=== PATIENT | female | born 1955 | race Caucasian/White ===

== ENCOUNTER 2017-05-31 19:31 | Inpatient (IN) | payer MEDICARE ==
[2017-05-31] MEDS ORDERED: Ondansetron INJ* 2 MG/ML VIAL IV ONE (22:24)
[2017-06-01] MEDS: NS 0.9% 1000 ML* 2,000 ML IV ONE ×2 (00:30→04:42)
[2017-06-01 01:12] LABS: Hematocrit 41 % (35-47); Hemoglobin 13.6 g/dl (12.0-16.0); Mean Corpuscular HGB Conc 33 g/dl (31-36); Mean Corpuscular Hemoglobin 29 pg (27-31); Mean Corpuscular Volume 87 fL (80-97); Mean Platelet Volume 9 um3 (7.4-10.4); Red Blood Count 4.74 10^6/ul (4.0-5.4); Red Cell Distribution Width 15 % (10.5-15); White Blood Count 14.7 10^3/ul (3.5-10.8)
[2017-06-01 01:27] LABS: Albumin 4.4 g/dL (3.2-5.2); BUN/Creatinine Ratio 24.4 (8-20); Calcium 9.8 mg/dL (8.6-10.3); EGFR African American 59.5 (>60); EGFR Non-African American 46.3 (>60); Globulin 3.4 g/dL (2-4); Total Bilirubin 0.8 mg/dL (0.2-1.0); Total Protein 7.8 g/dL (6.4-8.9)
[2017-06-01 01:33] LABS: Potassium 4.5 mmol/L (3.5-5.0)
[2017-06-01] MEDS ORDERED: Ondansetron TAB* 4 MG PO ONE (02:49)
--- NOTE | 2017-06-01 05:17 | ED ---
Stephanie Rivera Rebecca, scribed for John Poonuel on 05/31/17 at 2222 . Abdominal Pain/Female - HPI Summary HPI Summary: Pt is a 62 y/o F who presents to ED c/o N/V. Pt is scheduled to have a GI bypass with Dr. Mckenna so she began the diet 4 days ago. For 2 days she has been unable to tolerate PO intake. Reports that she is now vomiting bright yellow. Reports that she is unable to keep both food and medication down, including her Metformin. Sx aggravated by PO intake, alleviated by nothing. Denies abdominal pain. States she has not eaten for the last 3 days. Pt was started on Abx for UTI yesterday. PMHx DM. BG 151 earlier today. Similar episode in January 2016. - History of Current Complaint Chief Complaint: EDAbdPain Stated Complaint: UNABLE TO KEEP FOOD DOWN Time Seen by Provider: 05/31/17 22:02 Hx Obtained From: Patient Onset/Duration: Still Present Severity Currently: None Pain Intensity: 0 Pain Scale Used: 0-10 Numeric Aggravating Factor(s): Food Alleviating Factor(s): Nothing Associated Signs and Symptoms: Positive: Nausea, Vomiting Simlar Episode/Dx as:: Similar episode in January 2016 Allergies/Adverse Reactions: Allergies Allergy/AdvReac Type Severity Reaction Status Date / Time Lansoprazole [From Prevacid] Allergy Itching Verified 02/01/16 12:42 PMH/Surg Hx/FS Hx/Imm Hx Endocrine/Hematology History: Reports: Hx Diabetes - type 2 Denies: Hx Thyroid Disease Cardiovascular History: Reports: Hx Atrial Fibrillation, Hx Hypertension Denies: Hx Congestive Heart Failure Respiratory History: Reports: Hx Chronic Obstructive Pulmonary Disease (COPD) Denies: Hx Asthma GI History: Denies: Hx Ulcer History: Denies: Hx Renal Disease Musculoskeletal History: Reports: Hx Arthritis Sensory History: Reports: Hx Contacts or Glasses Opthamlomology History: Reports: Hx Contacts or Glasses - Cancer History Hx Chemotherapy: No Hx Radiation Therapy: No - Surgical History Surgery Procedure, Year, and Place: gall bladder, appy, tubal, [facility] Infectious Disease History: No Infectious Disease History: Denies: Hx Hepatitis, Hx Human Immunodeficiency Virus (HIV), Traveled Outside the [place] in Last 30 Days - Family History Known Family History: Positive: Cardiac Disease, Hypertension - Social History Alcohol Use: None Substance Use Type: Reports: None Smoking Status (MU): Former Smoker Type: Cigarettes Review of Systems Negative: Fever Positive: Vomiting, Nausea. Negative: Abdominal Pain All Other Systems Reviewed And Are Negative: Yes Physical Exam - Summary Physical Exam Summary: Appearance: Well appearing, no pain distress Skin: warm, dry, reflects adequate perfusion Head/face: normal Eyes: EOMI, LIZBET ENT: normal Neck: supple, nontender Respiratory: CTA, breath sounds present Cardiovascular: RRR, pulses symmetrical Abdomen: nontender, soft Bowel: present Musculoskeletal: normal, strength/ROM intact Neuro: normal, sensory motor intact, A&Ox3 Triage Information Reviewed: Yes Vital Signs On Initial Exam: Initial Vitals Temp Pulse Resp BP Pulse Ox 96 F 50 18 120/96 97 05/31/17 19:46 05/31/17 19:46 05/31/17 19:46 05/31/17 19:46 05/31/17 19:46 Vital Signs Reviewed: Yes Diagnostics - Vital Signs Vital Signs Temp Pulse Resp BP Pulse Ox 05/31/17 19:46 96 F 50 18 120/96 97 - Laboratory Result Diagrams: 06/01/17 00:55 06/01/17 00:55 Lab Statement: Any lab studies that have been ordered have been reviewed, and results considered in the medical decision making process. - Radiology KUB Xray Interpretation: No Acute Changes Radiology Interpretation Completed By: ED Physician CXR Xray Interpretation: No Acute Changes Radiology Interpretation Completed By: ED Physician - EKG 2221 Cardiac Rate: NL - 94 bpm EKG Rhythm: Atrial Fibrillation EKG Interpretation: No acute changes Re-Evaluation - Re-Evaluation First Eval Re-Evaluation Time: 02:45 Change: Improved Comment: Pt's sx have improved with the Zofran and she does not want to stay in the ED. She would prefer to f/u with her doctor as an outpatient. Second Eval Re-Evaluation Time: 04:14 Change: Worse Comment: Pt continues to vomit, failing her PO challenge. Abdominal Pain Fem Course/Dx - Course Course Of Treatment: Pt is a 62 y/o F who presents to ED c/o N/V. Pt is scheduled to have a GI bypass with Dr. Mckenna so she began the diet 4 days ago. For 2 days she has been unable to tolerate PO intake. Reports that she is now vomiting bright yellow. Reports that she is unable to keep both food and medication down, including her Metformin. Sx aggravated by PO intake. Denies abdominal pain. States she has not eaten for the last 3 days. Pt was started on Abx for UTI yesterday. PMHx DM. BG 151 earlier today. Similar episode in January 2016. LUB and CXR reveal no acute findings. EKG is A Fib with no acute changes. In the ED course, pt received Zofran which improved sx. Troponin of 0.00. Pt was unable to tolerate PO, failing her PO challenge. Discussed care of pt with Dr. Carpenter who accepts pt for admission. Pt will be admitted with Dx of dehydratoin and N/V. She understands and agrees. Allergies noted. - Diagnoses Provider Diagnoses: Dehydration, N&V (nausea and vomiting) - Provider Notifications Discussed Care Of Patient With: Armando Carpenter Time Discussed With Above Provider: 04:25 Instructed by Provider To: Other - Accepts pt for admission. Discharge - Discharge Plan Condition: Stable Disposition: ADMITTED TO [facility] Prescriptions: Ondansetron ODT TAB* [Zofran 4 MG Odt TAB*] 4 mg PO Q8H PRN #20 tab.odt MDD 3 PRN Reason: Vomiting Patient Education Materials: Dehydration (ED), Acute Nausea and Vomiting (ED) Referrals: Juancho Aguilar MD [Primary Care Provider] - 3 Days Gavin Mckenna MD [Medical Doctor] - The documentation as recorded by the Stephanie quinn Rebecca accurately reflects the service I personally performed and the decisions made by , Juan José Poon.
--- NOTE | 2017-06-01 07:41 | RAD ---
INDICATION: Intermittent shortness of breath and diaphoresis COMPARISON: None TECHNIQUE: PA and lateral views of the chest were obtained. FINDINGS: The heart and mediastinum are normal in size and contour. The lungs are grossly clear. There is no evidence of large pleural effusion. Mild degenerative changes of the thoracic spine includes loss of intervertebral disc height and anterior marginal osteophyte formation. There is no radiographic evidence of free air beneath the diaphragm IMPRESSION: No radiographic evidence of acute cardiopulmonary disease.
--- NOTE | 2017-06-01 07:51 | RAD ---
INDICATION: Emesis COMPARISON: None TECHNIQUE: 3 views the abdomen were obtained. FINDINGS: Postsurgical changes include surgical clips secondary to cholecystectomy. There are no acute bony or soft tissue abnormalities. The bowel gas pattern is normal. There is a moderate amount of stool overlying the renal shadows. There are no obvious coarse calcifications overlying the expected location of the bilateral collecting systems or ureters. IMPRESSION:Normal KUB.
[2017-06-01] MEDS ORDERED: Acetaminophen TAB* 325 MG PO PRN (07:56)
[2017-06-01] MEDS ORDERED: Ondansetron INJ* 2 MG/ML VIAL IV PRN (07:56)
[2017-06-01] MEDS ORDERED: NS 0.9% 1000 ML* 1,000 ML IV SCH (08:00)
--- NOTE | 2017-06-01 09:39 | RAD ---
HISTORY: History of DVT, asymmetric leg pain COMPARISONS: None relevant TECHNIQUE: Multiple transverse and longitudinal ultrasound images were obtained of the right lower extremity from the level of the common femoral vein inferiorly through to the infrapopliteal veins using grayscale, color Doppler, and spectral Doppler imaging with and without compression and with augmentation. Comparison images were obtained of the contralateral common femoral vein. FINDINGS: The study is limited by patient body habitus. VEINS: The venous system of the right lower extremity is compressible throughout its course, with normal flow on color Doppler imaging and normal response to augmentation on spectral Doppler imaging. Only one posterior tibial vein is visualized. SOFT TISSUES: Unremarkable. OTHER FINDINGS: None. IMPRESSION: NO RIGHT LOWER EXTREMITY DEEP VEIN THROMBOSIS
[2017-06-01 10:12] LABS: Urine Bilirubin Negative (Negative); Urine Glucose Negative (Negative); Urine Nitrite Negative (Negative)
[2017-06-01] MEDS: Omeprazole CAP* 20 MG PO SCH (10:32)
[2017-06-01] MEDS: Cetirizine* 10 MG TAB PO SCH (10:32)
[2017-06-01] MEDS: glipiZIDE TAB.XL* 5 MG PO SCH (10:33)
[2017-06-01] MEDS: metFORMIN* 1,000 MG TAB PO SCH ×2 (10:33→21:55)
[2017-06-01] MEDS: Losartan TAB* 25 MG PO SCH (10:34)
[2017-06-01] MEDS: Atorvastatin* 10 MG TAB PO SCH (10:34)
[2017-06-01] MEDS: Insulin GLARGINE(*) 1 UNITS UNIT SUBCUT SCH (10:35)
[2017-06-01] MEDS: cefTRIAXone VIAL(*) 1,000 MG in NS 0.9% 50 ML* 50 ML IVPB SCH (10:37)
--- NOTE | 2017-06-01 11:07 | HP ---
ADMISSION HISTORY AND PHYSICAL: DATE OF ADMISSION: 06/01/17 PRIMARY CARE PROVIDER: Dr. Aguilar. HEALTHCARE PROXY: Her . CODE STATUS: Full. SOURCE OF INFORMATION: History obtained from interview with the patient, review of ED records, review of past medical records. RELIABILITY: Good. CHIEF COMPLAINT: Intractable nausea and vomiting. HISTORY OF PRESENT ILLNESS: This is a 62-year-old female with past medical history of morbid obesity, insulin-dependent type 2 diabetes mellitus, hypertension amongst other comorbidities, with a planned gastric bypass on 06/[address] Mckenna. Thursday, 5 days prior to admission, she started on a high protein diet as directed by her doctors prior to the surgery and the following day, on , 4 days prior to admission, she developed nausea, vomiting. She continued to vomit overnight. She continued to vomit from through the day to the date of admission. She has been unable to tolerate food or medications, including her insulin, although that's IV, and her Xarelto. Three days prior to admission, she called her doctor and was seen in the Dr. Aguilar's office. She related urinary frequency and had urinalysis performed and was started on ciprofloxacin. I discussed with her the labs in Dr. Aguilar's office. The urine collection was too small to perform a urine dip and the culture has not yet been received from Dr. Aguilar's office from Thursday, so there is culture data pending. The patient took 1 day of ciprofloxacin, does no longer feel like she has urinary frequency. She has continued to vomit 5 to 6 times per day. She had 1 episode of loose stools for 2 consecutive days and then no further diarrhea. She notes decreased urine output with her decreased appetite and p.o. intake. There has been no sick contacts. She has had no pain. No fevers, chills, night sweats, loss of consciousness, headache, shortness of breath, chest pain. PAST MEDICAL HISTORY: 1. Morbid obesity with planned gastric bypass Dr. Mckenna. 2. Insulin-independent type 2 diabetes mellitus. 3. Atrial fibrillation. 4. Hypertension. 5. Depression. 6. GERD. 7. History of cholecystectomy. 8. Appendectomy. 9. Tonsillectomy. HOME MEDICATIONS: Include: 1. Insulin glargine 40 units in the morning and 30 units in the evening. 2. Cymbalta 60 mg daily. 3. Clarinex 5 mg daily. 4. Acetaminophen 1000 mg 4 times a day as needed. 5. Omeprazole 40 mg daily. 6. Multivitamin 1 capsule daily. 7. Metoprolol XL 25 mg in the evening. 8. Losartan 100 mg daily. 9. Simvastatin 20 mg daily. 10. Rivaroxaban 20 mg in the evening. 11. Metformin 1000 mg twice daily. 12. Glipizide 5 mg daily. 13. Vitamin D 35,000 units daily. ALLERGIES: LANSOPRAZOLE. FAMILY HISTORY: Father has CAD. Mother, sister, and brother with type 2 diabetes. Mother with hypertension. SOCIAL HISTORY: Smoked 1-1/2 packs per day for 3 years, quit 7 or 8 years prior , no alcohol. REVIEW OF SYSTEMS: As per HPI, otherwise all other systems negative. PHYSICAL EXAMINATION GENERAL: Obese woman, lying flat in bed, interactive, pleasant, in no apparent distress. VITAL SIGNS: In the emergency room, 124/75, heart rate 89, respiratory rate of 16, 96% on room air. T-max in the emergency room 96 degrees Fahrenheit. HEENT: Oropharynx is clear. She has dry mucous membranes. Sclerae are anicteric. NECK: She has no elevated JVD. She has no supraclavicular or cervical lymphadenopathy. LUNGS: Clear to auscultation. HEART: She has a regular rate and rhythm. No murmur, rub, or gallops. ABDOMEN: Soft, nondistended. Positive bowel sounds. No tenderness. No rebound or guarding. EXTREMITIES: Warm and well perfused. Her right lower extremity appears larger than her left. NEUROLOGIC: She is alert and oriented x3. Her cranial nerves are intact. LABORATORY/DIAGNOSTIC DATA: Pertinent labs reveal BUN of 29, creatinine 1.19, glucose of 150, troponin-I 0.00. Lipase 11, INR is 1.19. White blood cell count of 14.7, 81.5% neutrophils, hemoglobin 13.6, platelets 428. Urinalysis is pending. Chest x-ray: No active cardiopulmonary disease. Abdominal film still pending, formal interpretation, appears with no free air. Nonobstructive bowel gas pattern. Formal interpretation is pending. EKG: Atrial fibrillation, normal limit axis, normal limit intervals, biphasic T waves in V3 through V6, which is changed from prior. ASSESSMENT AND PLAN: This is a 62-year-old female with past medical history of insulin-dependent type 2 diabetes, atrial fibrillation, morbid obesity with planned gastric bypass, started on high protein diet, developed subsequent nausea and vomiting with also intervening diagnosis of urinary tract infection based on symptoms, now presenting unable to tolerate either medications or food. 1. Persistent nausea and vomiting. Complicated by acute kidney injury. Admit to the hospital. Continue normal saline. IV antiemetics. Challenge with liquid diet. If the patient is unable to swallow her Xarelto, we will transition her to heparin as she has not taken it for 3 days. I suspect this is in the setting of transitioning her diet. However, need to rule out other infectious etiology such as urinary tract infection as well as cardiac etiologies given her T wave inversions. 2. History of urinary tract infection without urine culture. She has received 1 day of ciprofloxacin. We will repeat urinalysis and treat with ceftriaxone. She does have an elevated white blood cell count. However, this is in the setting of several days of nausea and vomiting. 3. Morbid obesity. Nutritional consult for guidance on appropriate diet in the setting of inability to tolerate high protein diet. 4. Atrial fibrillation. Restart Xarelto. If unable to start Xarelto, we will consider heparinizing and she has been off of medication for sometime, for 3 days. 5. T-wave inversions. Repeat additional 2 troponins. Repeat EKG in the morning or with the changing troponin. 6. Type 2 diabetes. In the setting of poor p.o. intake, decrease 40 units of Lantus to 20 units of Lantus today. Hold all additional Lantus and glipizide, continue metformin. Continue on fingersticks. 7. DVT prophylaxis. Xarelto. Otherwise, transition to heparin. [id number]/[facility] #: [id number] [facility]ITALLuiz
[2017-06-01] MEDS: DULoxetine DR CAP* 60 MG CAP.DR PO SCH (12:06)
--- NOTE | 2017-06-01 17:06 | PN ---
Progress Note - Progress Note Date of Service: 06/01/17 SOAP: Subjective: Pt seen and chart reviewed. Pt known to me. Dysphagia. Objective: af vss labs noted Assessment: Morbid obesity, dysphagia. known stomach lesion/polyp Plan: Hold Xaralto, EGD with biopsy. Will follow
[2017-06-01] MEDS ORDERED: Dextrose 50% Syringe 50 ML* 25 GM/50 ML SYRINGE IV PUSH PRN (17:17)
[2017-06-01] MEDS: Metoprolol Succinate XL TAB* 25 MG PO SCH (17:40)
[2017-06-01] MEDS ORDERED: Rivaroxaban TAB(*) 20 MG TAB PO SCH (18:00)
[2017-06-01] MEDS ORDERED: PTO:Diclofenac 1% GEL (NF) 100 GM TUBE TOPICAL PRN (21:00)
[2017-06-01] MEDS: Insulin LISPRO* 1 UNITS UNIT SUBCUT SCH (21:54)
[2017-06-01] MEDS: Heparin VIAL(*) 5000 UNITS/ML VIAL (FIVE THOUSAND) SUBCUT SCH (21:55)
[2017-06-02] MEDS: Heparin VIAL(*) 5000 UNITS/ML VIAL (FIVE THOUSAND) SUBCUT SCH ×3 (05:58→22:20)
[2017-06-02] MEDS: Omeprazole CAP* 20 MG PO SCH (07:24)
[2017-06-02] MEDS: Insulin LISPRO* 1 UNITS UNIT SUBCUT SCH ×4 (07:28→21:01)
[2017-06-02] MEDS: Losartan TAB* 25 MG PO SCH (09:56)
[2017-06-02] MEDS: Atorvastatin* 10 MG TAB PO SCH (09:57)
[2017-06-02] MEDS: metFORMIN* 1,000 MG TAB PO SCH ×2 (09:57→21:01)
[2017-06-02] MEDS: DULoxetine DR CAP* 60 MG CAP.DR PO SCH (09:57)
[2017-06-02] MEDS: glipiZIDE TAB.XL* 5 MG PO SCH (09:57)
[2017-06-02] MEDS: Cetirizine* 10 MG TAB PO SCH (09:58)
[2017-06-02] MEDS: cefTRIAXone VIAL(*) 1,000 MG in NS 0.9% 50 ML* 50 ML IVPB SCH (09:58)
[2017-06-02] MEDS: Insulin GLARGINE(*) 1 UNITS UNIT SUBCUT SCH (09:58)
--- NOTE | 2017-06-02 17:15 | PN ---
Subjective Date of Service: 06/02/17 Interval History: Still nauseous but able to tolerate clear liquids and medications today. No other complaints. Objective Active Medications: Acetaminophen (Tylenol Tab*) 650 mg PO Q4H PRN PRN Reason: FEVER/PAIN Atorvastatin Calcium (Lipitor*) 20 mg PO DAILY [facility] Last Admin: 06/02/17 09:57 Dose: 20 mg Cetirizine HCl (Zyrtec*) 10 mg PO DAILY [facility] PRN Reason: Protocol Last Admin: 06/02/17 09:58 Dose: 10 mg Dextrose (D50w Syringe 50 Ml*) 12.5 gm IV PUSH .FOR FS < 60 - SS PRN PRN Reason: FS < 60 Diclofenac Sodium (Voltaren 1% Gel (Nf)) 1 applic TOPICAL BID PRN PRN Reason: TO KNEES Duloxetine HCl (Cymbalta Cap*) 60 mg PO DAILY [facility] Last Admin: 06/02/17 09:57 Dose: 60 mg Glipizide (Glucotrol Xl*) 5 mg PO DAILY [facility] Last Admin: 06/02/17 09:57 Dose: 5 mg Heparin Sodium (Porcine) (Heparin Vial(*)) 5,000 units SUBCUT Q8HR [facility] Last Admin: 06/02/17 14:43 Dose: 5,000 units Ceftriaxone Sodium 1,000 mg/ (Sodium Chloride) 50 mls @ 200 mls/hr IVPB Q24H [facility] Last Admin: 06/02/17 09:58 Dose: 200 mls/hr Insulin Glargine (Lantus(*)) 20 units SUBCUT Q24H [facility] Last Admin: 06/02/17 09:58 Dose: 20 unit Insulin Human Lispro (Humalog*) 0 units SUBCUT ACHS [facility] PRN Reason: Protocol Last Admin: 06/02/17 16:44 Dose: 2 unit Losartan Potassium (Cozaar Tab*) 100 mg PO DAILY [facility] Last Admin: 06/02/17 09:56 Dose: 100 mg Metformin HCl (Glucophage*) 1,000 mg PO BID [facility] Last Admin: 06/02/17 09:57 Dose: 1,000 mg Metoprolol Succinate (Toprol Xl Tab*) 25 mg PO QPM [facility] Last Admin: 06/01/17 17:40 Dose: 25 mg Omeprazole (Prilosec Cap*) 40 mg PO DAILY@0730 [facility] Last Admin: 06/02/17 07:24 Dose: 40 mg Ondansetron HCl (Zofran Inj*) 4 mg IV Q4H PRN PRN Reason: NAUSEA/VOMITING Vital Signs 06/01/17 06/01/17 06/02/17 19:23 20:00 00:00 Temperature 97.9 F 98.0 F Pulse Rate 103 100 Respiratory 16 16 20 Rate Blood Pressure 136/67 126/60 (mmHg) O2 Sat by Pulse 96 97 Oximetry 06/02/17 06/02/17 06/02/17 03:48 07:32 08:00 Temperature 97.6 F 97.3 F Pulse Rate 75 73 Respiratory 20 18 18 Rate Blood Pressure 109/76 144/82 (mmHg) O2 Sat by Pulse 98 97 Oximetry 06/02/17 06/02/17 06/02/17 11:31 15:01 15:24 Temperature 97.8 F 99.1 F Pulse Rate 80 105 Respiratory 16 Rate Blood Pressure 120/78 115/71 (mmHg) O2 Sat by Pulse 97 98 Oximetry Oxygen Devices in Use Now: None Appearance: obese, NAD Eyes: No Scleral Icterus, PERRLA Ears/Nose/Mouth/Throat: Mucous Membranes Moist Neck: NL Appearance and Movements; NL JVP Respiratory: Symmetrical Chest Expansion and Respiratory Effort, Clear to Auscultation Cardiovascular: RRR Abdominal: NL Sounds; No Tenderness; No Distention Lymphatic: No Cervical Adenopathy Neurological: Alert and Oriented x 3 Result Diagrams: 06/01/17 00:55 06/01/17 00:55 Assess/Plan/Problems-Billing Assessment: 62 F admitted with intractable N/V - Patient Problems (1) Intractable nausea and vomiting Comment: In setting of high protein diet in preparation for gastric surgery planned 06/[address] Mckenna to arrange for cscope (2) Afib Comment: Rate controlled on Metoprolol. Xarelto on hold for cscope. restart as soon as possible (3) Insulin dependent diabetes mellitus Comment: oral medications and lantus with insulin SS (4) UTI (urinary tract infection) Comment: CTX Status and Disposition: Transfer to Dr. Mckenna's service
[2017-06-02] MEDS: Metoprolol Succinate XL TAB* 25 MG PO SCH (17:52)
[2017-06-03] MEDS: Heparin VIAL(*) 5000 UNITS/ML VIAL (FIVE THOUSAND) SUBCUT SCH ×2 (05:38→13:51)
[2017-06-03] MEDS: Insulin LISPRO* 1 UNITS UNIT SUBCUT SCH ×5 (08:00→21:54)
[2017-06-03] MEDS: Cetirizine* 10 MG TAB PO SCH (08:24)
[2017-06-03] MEDS: Atorvastatin* 10 MG TAB PO SCH (08:24)
[2017-06-03] MEDS: metFORMIN* 1,000 MG TAB PO SCH ×2 (08:24→21:50)
[2017-06-03] MEDS: DULoxetine DR CAP* 60 MG CAP.DR PO SCH (08:24)
[2017-06-03] MEDS: glipiZIDE TAB.XL* 5 MG PO SCH (08:25)
[2017-06-03] MEDS: Omeprazole CAP* 20 MG PO SCH (08:25)
[2017-06-03] MEDS: Losartan TAB* 25 MG PO SCH (08:32)
[2017-06-03] MEDS: cefTRIAXone VIAL(*) 1,000 MG in NS 0.9% 50 ML* 50 ML IVPB SCH (10:14)
[2017-06-03] MEDS: Insulin GLARGINE(*) 1 UNITS UNIT SUBCUT SCH (10:30)
[2017-06-03] MEDS ORDERED: Insulin GLARGINE(*) 1 UNITS UNIT SUBCUT ONE (11:00)
[2017-06-03] MEDS ORDERED: Buffered Lidocaine 0.9% SYRIN* 5 ML/SYR SYRINGE ONE (13:37)
[2017-06-03] MEDS ORDERED: Dextrose 50% Syringe 50 ML* 25 GM/50 ML SYRINGE IV PUSH ONE (13:57)
[2017-06-03] MEDS ORDERED: Dextrose 50% Syringe 50 ML* 25 GM/50 ML SYRINGE ONE (13:59)
[2017-06-03] MEDS ORDERED: fentaNYL* 50 MCG/ML 2 ML VIAL (100 MCG VIAL) IV PRN (14:09)
[2017-06-03] MEDS ORDERED: PROCHLORPERAZINE INJ 5 MG/ML 2 ML VIAL IV PRN (14:09)
[2017-06-03] MEDS: Metoprolol Succinate XL TAB* 25 MG PO SCH (17:25)
--- NOTE | 2017-06-03 17:42 | PN ---
Progress Note - Progress Note Date of Service: 06/03/17 SOAP: Subjective: Pt seen, chart reviewed. No vomiting. s/p EGD, removal of polyp Objective: af vss a and o x3 Assessment: s/p egd, improving after N/V following starting protein diet Plan: clears, advance d/c tomorrow OR next week
[2017-06-03] MEDS ORDERED: Rivaroxaban TAB(*) 20 MG TAB PO SCH (18:00)
--- NOTE | 2017-06-03 22:15 | CONS ---
GASTROENTEROLOGY CONSULTATION: DATE OF CONSULT: 06/03/17 PRIMARY CARE PROVIDER: Dr. Aguilar. HOSPITAL PROVIDER: Erik Engel MD REASON FOR CONSULTATION: Intractable nausea, vomiting. HISTORY OF PRESENT ILLNESS: Ms. Lara is a pleasant 62-year-old female with a past medical history of morbid obesity, diabetes and hypertension, who presented to the hospital with complaints of intractable nausea, vomiting after starting a high protein diet as directed by her bariatric surgeon in preparation for her gastric bypass on 06/10/[address] Mckenna. She had difficulty tolerating any food or her regular daily medications, which prompted her to present to the emergency room for further evaluation. She also stated that she had diarrhea for a few days, but has since resolved. She denies any fevers or chills. Denies sick contacts. She has had a decreased appetite over the last few days due to her nausea and vomiting. Gastroenterology was consulted for further evaluation of these symptoms. Of note, during her last endoscopy performed back in January of 2017 a large gastric polyp was not removed due to anticoagulation use. Her symptoms have slightly improved while in the hospital. She is on Omeprazole 40 mg daily. Denies dysphagia. No rectal bleeding. No recent weight changes. No fevers/chills. No recent travels. PAST MEDICAL HISTORY: 1. Atrial fibrillation, on Xarelto. 2. GERD. 3. Morbid obesity. 4. Diabetes mellitus type 2, insulin-dependent. 5. Hypertension. 6. Depression. PAST SURGICAL HISTORY: 1. Cholecystectomy. 2. Appendectomy. 3. Tonsillectomy. HOME MEDICATIONS: 1. Insulin. 2. Cymbalta. 3. Clarinex. 4. Acetaminophen. 5. Omeprazole. 6. Multivitamin. 7. Metoprolol. 8. Losartan. 9. Simvastatin. 10. Rivaroxaban. 11. Metformin. 12. Glipizide. 13. Vitamin D. ALLERGIES: LANSOPRAZOLE - unknown reaction at this time. FAMILY HISTORY: Denies a history of gastrointestinal malignancies. Father with coronary artery disease. Mother, sister, and brother with diabetes. Mother also had hypertension. SOCIAL HISTORY: She smoked about one and a half packs per day for 3 years, quit about 7 or 8 years ago. Denies alcohol use. REVIEW OF SYSTEMS: A 14-point scale has been reviewed, all pertinent positives have been noted above in the HPI. PHYSICAL EXAM: General: Awake alert, oriented x3, in no acute distress. HEENT : Dry mucous membranes. Anicteric sclerae. Heart: Regular rate and rhythm. Pulmonary: Clear to auscultation bilaterally. Abdomen: Soft, nontender, and nondistended. Positive bowel sounds in 4 quadrants, obese, nontender. No rebound, guarding, or rigidity. Extremities: No edema and cyanosis. Neurological Exam: She is grossly intact. Vital signs have been noted in the medical chart and are stable. DIAGNOSTIC STUDIES/LAB DATA: WBC is 14.7, hemoglobin 13.6, hematocrit 41, platelet count 428. INR 1.19, PTT 25.3. Sodium 138, potassium 4.5, chloride 103, CO2 25, anion gap 10, BUN 29, creatinine 1.19, calcium 9.8. Total bilirubin 0.80, AST 31, ALT 21, alkaline phosphatase 71. Troponin 0.00, total protein 7.8, albumin 4.4, lipase 11. Abdominal x-ray on 05/31/17 revealed a normal imaging. Lower extremity venous Doppler studies were unremarkable on 06/01/17. ASSESSMENT AND PLAN: Ms. Lara is a pleasant 62-year-old female with a past medical history of morbid obesity, atrial fibrillation (Xarelto has been held for 2 days), hypertension, diabetes mellitus type 2, who presented to the emergency room with complaints of intractable nausea, vomiting. She is currently scheduled to have gastric bypass surgery with Dr. Mckenna on 06/10/17. Gastroenterology was consulted for further evaluation of the patient's symptoms. 1. Intractable nausea, vomiting. ~NPO for an EGD today. We will perform this under monitored anesthesia care due to her multiple comorbidities. ~Continue Omperazole 40 mg daily. ~She is currently off Xarelto; therefore, biopsies and possible polypectomies can be performed safely. ~Continue Compazine and Zofran as needed for nausea and vomiting. ~Further recommendations will be provided after the results of endoscopy. 2. Gastroesophageal reflux disease. ~Currently on omeprazole 40 mg daily. 3. Morbid obesity. ~Scheduled for gastric bypass with Dr. Mckenna on 06/10/17. 4. Atrial fibrillation, on Xarelto. ~Xarelto has been held for 3 days in light of EGD today. Thank you, Dr. Mckenna, for allowing us to participate in the care of your patient. Further recommendations will be provided as the patient's clinical course progresses. If you should have any further questions or concerns, please do not hesitate to contact us. [id number]/[facility] #: [id number] DONALD
--- NOTE | 2017-06-04 00:40 | PRO ---
CC: Dr. Aguilar; Dr. Mckenna * GASTROENTEROLOGY OPERATIVE REPORT: DATE OF PROCEDURE: 06/03/17 SURGEON: Elvia Vu DO. ANESTHESIA: MAC. OPERATIVE PROCEDURE: Esophagogastroduodenoscopy to the second portion of the duodenum. HISTORY OF PRESENT ILLNESS: Catherine is a pleasant 62-year-old female, who is morbidly obese and scheduled to undergo gastric bypass surgery next week. She has a history of atrial fibrillation, currently off Xarelto for the last 2 days , who presented to the hospital with complaints of intractable nausea and vomiting after initiating a high protein diet in preparation for her surgery. Gastroenterology was consulted for further evaluation of these symptoms and need for resection of a large gastric polyp that was noted on endoscopy in January of 2007, but was not removed due to active anticoagulation therapy. PREOPERATIVE DIAGNOSES: 1. Intractable nausea and vomiting. 2. Previous unresected gastric polyp due to anticoagulation therapy. POSTOPERATIVE DIAGNOSES: 1. Irregular gastroesophageal junction at 40 cm from the incisors with biopsies to rule out Esquivel's esophagus. 2. Normal-appearing duodenum to the second portion with biopsies to rule out celiac disease. 3. Pangastritis with biopsies from the antrum and body to rule out Helicobacter pylori. 4. A 1-cm ulcerated pedunculated fundic polyp with hot snare polypectomy and one hemoclip placement for hemostasis. 5. A 6-mm nodule in the cardia of the stomach with biopsies. 6. Normal mid and proximal esophagus with biopsies to rule out eosinophilic esophagitis. RECOMMENDATIONS: 1. We will follow up with biopsy results. 2. Continue proton pump inhibitor therapy daily. 3. Encouraged antireflux lifestyle modifications. 4. May be advanced to a clear liquid diet this evening. DESCRIPTION OF PROCEDURE: Esophagogastroduodenoscopy was explained in detail to the patient. The risks, benefits, complications, alternatives, and possibilities of missed lesions were explained and understood. Complications included but were not limited to reaction to anesthesia, aspiration, increased risk of bleeding, and perforation. All questions were answered. The patient demonstrated understanding of the conversation and informed consent was obtained. Next, the patient was brought to the OR, placed in the left lateral recumbent position where blood pressure, cardiac and oxygen monitors were applied. The patient was found to be a fit candidate for moderate anesthesia care. After adequate IV sedation was obtained by the anesthesiologist, a bite block was placed. Next, a standard adult Olympus endoscope was inserted per os under direct visualization to the first and second portion of the duodenum. The first and second portion of the duodenum were grossly normal appearing. Cold forceps biopsies were obtained to rule out celiac disease. Further withdrawal of the endoscope into the gastric lumen revealed erythematous changes consistent with gastritis throughout the entire stomach. Cold forceps biopsies were obtained from the antrum and body to rule out H. pylori. Upon further withdrawal into the fundus of the stomach a 1-cm ulcerative pedunculated polyp was noted, this was removed via hot snare polypectomy. An additional hemoclip was placed due to an urgent need for anticoagulation therapy. Hemostasis was seen. Further withdrawal into the cardia of the stomach revealed a 6 mm nodule , this was biopsied. Further withdrawal into the distal esophagus revealed an irregular appearing GE junction noted to be at 40 cm. This area was biopsied via jumbo forceps to rule out Esquivel's esophagus. The rest of the tubular esophagus was normal appearing; however, cold forceps biopsies were obtained to rule out eosinophilic esophagitis given previous history of dysphagia. Air was then removed from the patient. Endoscope was removed from the patient. The patient tolerated the procedure well. There were no immediate complications. After a period of observation, the patient was transferred back to the medical floor for further evaluation and care. Thank you, Dr. Aguilar and Dr. Mckenna, for allowing us to participate in the care of your patient. If you should have any further questions or concerns, please do not hesitate to contact us. [id number]/[facility] #: [id number] DONALD
[2017-06-04] MEDS: Insulin LISPRO* 1 UNITS UNIT SUBCUT SCH (07:29)
[2017-06-04] MEDS: Losartan TAB* 25 MG PO SCH (07:30)
[2017-06-04] MEDS: DULoxetine DR CAP* 60 MG CAP.DR PO SCH (07:30)
[2017-06-04] MEDS: Cetirizine* 10 MG TAB PO SCH (07:30)
[2017-06-04] MEDS: Omeprazole CAP* 20 MG PO SCH (07:30)
[2017-06-04] MEDS: Atorvastatin* 10 MG TAB PO SCH (07:30)
[2017-06-04] MEDS: glipiZIDE TAB.XL* 5 MG PO SCH (07:31)
[2017-06-04] MEDS: metFORMIN* 1,000 MG TAB PO SCH (07:31)
[2017-06-04 08:07] VITALS: BP 151/99
[2017-06-04] MEDS: Insulin GLARGINE(*) 1 UNITS UNIT SUBCUT SCH (10:09)
[2017-06-04] MEDS: cefTRIAXone VIAL(*) 1,000 MG in NS 0.9% 50 ML* 50 ML IVPB SCH (10:31)
== END 2017-06-04 10:46 | disposition home or self-care (01) | DRG 394 ==
LOC: ED 19:31 → MEDTELE 06-01 04:26 → OBSVTOIN 06-03 17:16
PROVIDERS: ADMIT Hospitalist; ATTEND Surgery
PROC: 0DB98ZX Excision of Duodenum, Via Natural or Artificial Opening Endoscopic, Diagnostic (ICD-10-PCS; 2017-06-03)
PROC: 0DB78ZX Excision of Stomach, Pylorus, Via Natural or Artificial Opening Endoscopic, Diagnostic (ICD-10-PCS; 2017-06-03)
PROC: 0DB68ZX Excision of Stomach, Via Natural or Artificial Opening Endoscopic, Diagnostic (ICD-10-PCS; 2017-06-03)
PROC: 0DB18ZX Excision of Upper Esophagus, Via Natural or Artificial Opening Endoscopic, Diagnostic (ICD-10-PCS; 2017-06-03)
PROC: 0DB28ZX Excision of Middle Esophagus, Via Natural or Artificial Opening Endoscopic, Diagnostic (ICD-10-PCS; 2017-06-03)
PROC: 0DB48ZX Excision of Esophagogastric Junction, Via Natural or Artificial Opening Endoscopic, Diagnostic (ICD-10-PCS; 2017-06-03)
PROC: 0DB68ZZ Excision of Stomach, Via Natural or Artificial Opening Endoscopic (ICD-10-PCS; principal; 2017-06-03 13:30)
DX: K31.7 Polyp of stomach and duodenum (principal); N17.9 Acute kidney failure, unspecified; R13.10 Dysphagia, unspecified; E66.01 Morbid (severe) obesity due to excess calories; I48.91 Unspecified atrial fibrillation; Z68.42 Body mass index [BMI] 45.0-49.9, adult; E86.0 Dehydration; N39.0 Urinary tract infection, site not specified; E11.9 Type 2 diabetes mellitus without complications; I10 Essential (primary) hypertension; F32.9 Major depressive disorder, single episode, unspecified; K21.9 Gastro-esophageal reflux disease without esophagitis; Z90.49 Acquired absence of other specified parts of digestive tract; Z88.8 Allergy status to other drugs, medicaments and biological substances; Z82.49 Family history of ischemic heart disease and other diseases of the circulatory system; Z83.3 Family history of diabetes mellitus; Z87.891 Personal history of nicotine dependence; J44.9 Chronic obstructive pulmonary disease, unspecified; M19.90 Unspecified osteoarthritis, unspecified site; Z98.51 Tubal ligation status; R11.2 Nausea with vomiting, unspecified; K29.70 Gastritis, unspecified, without bleeding; K31.89 Other diseases of stomach and duodenum
CPT/HCPCS: 36415; 71020; 74000; 80053; 81003; 83690; 84484; 85025; 85610; 85730; 88305; 93005; A9270-GY; J0696; J1644; J2405

== ENCOUNTER 2017-06-10 06:28 | Inpatient (IN) | payer MEDICARE ==
[~2017-06-10 06:28] MED LIST: Buffered Lidocaine 0.9% SYRIN* 5 ML/SYR SYRINGE INTRADERM ONE; Famotidine IV* 10 MG/ML 2 ML (20 mg) IV ONE; Metoclopramide TAB* 10 MG PO ONE
[2017-06-10] MEDS ORDERED: Famotidine IV* 10 MG/ML 2 ML (20 mg) ONE (06:48)
[2017-06-10] MEDS ORDERED: Metoclopramide TAB* 10 MG ONE (06:49)
[2017-06-10] MEDS ORDERED: Buffered Lidocaine 0.9% SYRIN* 5 ML/SYR SYRINGE ONE (06:49)
[2017-06-10] MEDS ORDERED: Methylene Blue 0.5 %* 50 MG/10 ML AMP IV ONE (07:10)
[2017-06-10] MEDS ORDERED: Bupivacaine 0.25% SDV* 30 ML ONE ×2 (07:10→08:53)
[2017-06-10] MEDS ORDERED: Clindamycin 900 MG IVPREMIX(* 900 MG/50 ML SDV IV ONE (07:17)
[2017-06-10] MEDS ORDERED: ceFAZolin 2 GM PREMIX (*) 2 GM/50 ML BAG IVPB ONE (07:17)
[2017-06-10] MEDS ORDERED: Propofol* 10 MG/ML 20 ML BTL IV PUSH ONE ×2 (07:25→10:56)
[2017-06-10] MEDS ORDERED: Rocuronium* 10 MG/ML VIAL ONE (07:25)
[2017-06-10] MEDS ORDERED: KETAMINE HCL* 50 MG/ML 10 ML VIAL ONE (07:25)
[2017-06-10] MEDS ORDERED: Lidocaine 2% PF * 5 ML VIAL ONE (07:25)
[2017-06-10] MEDS ORDERED: Dexamethasone IV* 4 MG/ML 1 ML (4 MG) ONE (07:25)
[2017-06-10] MEDS ORDERED: Ketorolac INJ* 30 MG/ML 1 ML VIAL ONE (07:25)
[2017-06-10] MEDS ORDERED: Ondansetron INJ* 2 MG/ML VIAL ONE (07:25)
[2017-06-10] MEDS ORDERED: fentaNYL* 50 MCG/ML 5 ML VIAL (250 MCG VIAL) ONE (07:26)
[2017-06-10] MEDS ORDERED: Midazolam* 1 MG/ML 5 ML VIAL (5 MG) ONE (07:26)
[2017-06-10] MEDS ORDERED: ceFAZolin 1 GM* X ONE DOSE IVPB ×2 (08:00)
[2017-06-10] MEDS ORDERED: Labetalol IV* 5 MG/ML 20 ML VIAL ONE (08:08)
[2017-06-10] MEDS ORDERED: Atropine 1MG/ML INJ* 1 ML VIAL ONE (08:31)
[2017-06-10] MEDS ORDERED: fentaNYL* 50 MCG/ML 2 ML VIAL (100 MCG VIAL) ONE ×4 (08:44→12:23)
[2017-06-10] MEDS ORDERED: Phenylephrine IV* 40 MCG/ML 10 ML SYRINGE ONE (09:40)
[2017-06-10] MEDS ORDERED: DiMENhydriNATE IV* 50 MG/ML VIAL IV PUSH PRN (09:55)
[2017-06-10] MEDS ORDERED: Ondansetron INJ* 2 MG/ML VIAL IV PRN ×2 (09:55→11:22)
[2017-06-10] MEDS ORDERED: HYDROmorphone INJ* 1 MG/ML CARPUJECT SYRINGE IV PRN ×2 (09:55→11:22)
[2017-06-10] MEDS ORDERED: Acetaminophen ADULT LIQ* 650 MG/20.3 ML UDC PO PRN (11:22)
[2017-06-10] MEDS ORDERED: diPHENhydraMINE IV* 50 MG/ML 1 ml VIAL (BENADRYL) SLOW PUSH PRN (11:22)
--- NOTE | 2017-06-10 11:22 | SURGPN ---
Brief Operative Note - Surgery Procedures: Procedures Pre-OP Diagnoses: Clinically severe obesity Post-op Diagnosis: same Procedure: Laparoscopic Mirela an Y gastric bypass Surgeon: Bala Larat: Diana Marcanothefranck: ALEM Bettencourt EBL: minimal IVF: crystalloid Specimen: none Drains: none
[2017-06-10] MEDS: fentaNYL* 50 MCG/ML 2 ML VIAL (100 MCG VIAL) IV PRN ×2 (12:24→12:43)
[2017-06-10] MEDS ORDERED: HYDROmorphone INJ* 1 MG/ML CARPUJECT SYRINGE ONE (12:50)
[2017-06-10] MEDS: Heparin VIAL(*) 5000 UNITS/ML VIAL (FIVE THOUSAND) SUBCUT SCH ×2 (14:43→22:08)
[2017-06-10] MEDS: Ketorolac INJ* 15 MG/ML 1 ML VIAL IV PRN ×2 (15:44→22:20)
[2017-06-10] MEDS ORDERED: Dextrose 50% Syringe 50 ML* 25 GM/50 ML SYRINGE IV PUSH PRN (17:34)
[2017-06-10] MEDS: HYDROmorphone INJ* 2 MG/ML CARPUJECT SYRINGE IV PRN ×2 (17:37→22:17)
[2017-06-10] MEDS: Insulin LISPRO* 1 UNITS UNIT SUBCUT SCH (18:03)
[2017-06-10] MEDS ORDERED: Metoprolol Tartrate IV* 1 MG/ML 5 ML VIAL IV SCH (19:00)
[2017-06-11] MEDS: Insulin LISPRO* 1 UNITS UNIT SUBCUT SCH ×5 (00:10→23:53)
[2017-06-11] MEDS: Metoprolol Tartrate IV* 1 MG/ML 5 ML VIAL IV SCH ×5 (01:38→23:58)
[2017-06-11] MEDS: HYDROmorphone INJ* 2 MG/ML CARPUJECT SYRINGE IV PRN ×2 (05:30→11:11)
[2017-06-11] MEDS: Heparin VIAL(*) 5000 UNITS/ML VIAL (FIVE THOUSAND) SUBCUT SCH ×3 (05:33→22:42)
--- NOTE | 2017-06-11 09:06 | RAD ---
INDICATION: 1 day postop Mirela-en-Y gastric bypass for morbid obesity. COMPARISON: February 01, 2016 CT. TECHNIQUE: 0.3 minutes fluoroscopy. Spot images of the esophagogastric junction through proximal jejunum obtained during ingestion of Gastrografin contrast. AP and bilateral shallow oblique views obtained. FINDINGS: Contrast passes from the distal esophagus through the gastric pouch and gastrojejunal anastomosis without delay. No evidence for enteric leak. IMPRESSION: No evidence for enteric leak post Mirela-en-Y gastric bypass. CPT II Codes: 6045F
[2017-06-11] MEDS: D5W 1/2 NS KCl 20 Meq 1000 ML* 1,000 ML IV SCH ×2 (11:11→19:12)
--- NOTE | 2017-06-11 11:53 | SURGPN ---
Subjective - Introduction -: Reports doing very well, ambulatory. Denies any abdominal pain, nausea, vomiting , fever or chills. No flatus yet. - Medications -: Active Medications Generic Name Dose Route Start Last Admin Trade Name Freq PRN Reason Stop Dose Admin Acetaminophen 650 mg 06/10/17 11:22 Tylenol Adult Liq* PO Q6H PRN Temp > 101 F Or Mild Pain Hydrocodone Bitart/Acetaminophen 10 ml 06/10/17 11:22 Nortab 7.5/325 Liq* PO Q6H PRN PAIN Dextrose 12.5 gm 06/10/17 17:34 D50w Syringe 50 Ml* IV PUSH .FOR FS < 60 - SS PRN FS < 60 Diphenhydramine HCl 25 mg 06/10/17 11:22 Benadryl Iv* SLOW PUSH Q6H PRN ITCHING Heparin Sodium (Porcine) 5,000 units 06/10/17 14:00 06/11/17 05:33 Heparin Vial(*) SUBCUT 5,000 units Q8HR ABDIAS Administration Hydromorphone HCl 0.5 mg 06/10/17 17:33 06/11/17 11:11 Dilaudid Inj* IV 0.5 mg Q3H PRN Administration PAIN - SEVERE Potassium Chloride/Dextrose 1,000 mls @ 125 mls/hr 06/11/17 11:23 06/11/17 11 :11 D5w 1/2 Ns Kcl 20 Meq 1000 Ml* IV 125 mls/hr PER RATE ABDIAS Administration Famotidine 20 mg/ Sodium 102 mls @ 408 mls/hr 06/10/17 12:00 06/11/17 00:00 Chloride IVPB 408 mls/hr Q12H ABDIAS Administration Insulin Human Lispro 0 units 06/10/17 18:00 06/11/17 05:42 Humalog* SUBCUT 3 units Q6HR ABDIAS Administration Protocol Ketorolac Tromethamine 15 mg 06/10/17 11:22 06/10/17 22:20 Toradol Inj* IV 06/12/17 02:00 15 mg Q6H PRN Administration PAIN Metoprolol Tartrate 5 mg 06/11/17 01:30 06/11/17 07:58 Lopressor Iv* IV 5 mg 0130,0730,1330,1930 ABDIAS Administration Ondansetron HCl 4 mg 06/10/17 11:22 06/11/17 11:31 Zofran Inj* IV 4 mg Q6H PRN Administration NAUSEA/VOMITING Objective - Objective -: Awake and alert, sitting on her bed, comfortable and in NAD. - Intake and Output -: Intake & Output 06/09/17 06/10/17 06/11/17 06/12/17 06:59 06:59 06:59 06:59 Intake Total 5091 999 Output Total 1050 Balance 4041 999 Weight 291 lb Intake: IV Fluids 5091 999 ANCEF 3GM 100 CLINDAMYCIN 900 MG 50 LR 4941 999 Oral 0 0 Output: Cardenas 1050 Surgical Physical Exam - Comments -: VSS, afebrile Lungs CTA bilat. Heart RRR, no murmurs. Abdomen soft, NT, ND. Incisions clean, dry and intact. No guarding or rebound. Upper GI reviewed, negative for leak Assessment and Plan - Assessment -: A 62 y/o female, POD#1, s/p laparoscopic RYGB, doing well. - Plan Additional Comments: D/C cardenas cath Ambulate as tolerated Start bariatric stage I clear liquids Likely home in AM
[2017-06-11] MEDS ORDERED: Metoclopramide IV* 5 MG/ML 2 ML VIAL IV ONE (12:33)
[2017-06-11] MEDS ORDERED: Metoprolol Tartrate IV* 1 MG/ML 5 ML VIAL ONE (12:39)
[2017-06-11] MEDS ORDERED: Metoclopramide IV* 5 MG/ML 2 ML VIAL ONE (12:39)
[2017-06-11] MEDS ORDERED: Famotidine IV* 10 MG/ML 2 ML (20 mg) ONE (12:39)
[2017-06-11] MEDS ORDERED: Famotidine IV* 10 MG/ML 2 ML (20 mg) IV SCH (13:00)
--- NOTE | 2017-06-11 14:38 | OP ---
CC: [facility]; Dr. Juancho Aguilar; Dr. Gavin Robb OPERATIVE REPORT: DATE OF OPERATION: 06/10/17 DATE OF : 59 SURGEON: Gavin Mckenna MD HOTEL CASINO FLOORPERSON: FELIX Haile ANESTHESIOLOGIST: Elvis Bettencourt MD ANESTHESIA: General. PRE-OP DIAGNOSES: 1. Clinically severe obesity. 2. Obstructive sleep apnea. 3. Hypertension. 4. Type 2 diabetes. 5. Hypercholesterolemia. POST-OP DIAGNOSES: 1. Clinically severe obesity. 2. Obstructive sleep apnea. 3. Hypertension. 4. Type 2 diabetes. 5. Hypercholesterolemia. OPERATIVE PROCEDURE: Laparoscopic Mirela-en-Y gastric bypass. ESTIMATED BLOOD LOSS: Minimal. FLUIDS: Crystalloid fluid given. SPECIMEN: None. COUNTS: Lap pad count and instrument count correct at the end of the procedure. DRAINS: None. DESCRIPTION OF PROCEDURE: The patient was identified in the preoperative area, marked, consent sign ed. Brought to the OR and placed on the operating room table in the supine position. Preoperative antibiotics were given. Sequential compression devices were placed in bilateral lower extremities. General anesthesia was induced. The patient's abdomen was prepped and draped in a standard surgica l fashion. Time-out was performed. Folds of the umbilicus were elevated anteriorly and a Veress needle was inserted into the abdominal cavity, which was then allowed to insufflate to a pressure of 15 mmHg. The patient tolerated the in sufflation well midway between the xiphoid and the umbilicus. Just left of midline, a 12-mm trocar was inserted, laparoscope was inserted through this and there was no evidence of injury from the tro car insertion or from the Veress needle. Review of the abdomen showed that the Veress needle did en ter into some omentum that was attached to the anterior abdominal wall and indeed there was signific ant amount of anterior abdominal wall adhesions. Additional trocars were placed in the following po sition, a 12-mm and a 5-mm in the left upper quadrant. Attention was then turned towards the midline. The omental attachments to the anterior abdominal wa ll were taken down through a LigaSure device. This was also extended superiorly to the falciform li gament that the attachments were involving and was unable to show that the omentum could be retracte d anteriorly. Next, additional 12-mm and 5-mm ports in the right upper quadrant were placed. Attention was then turned towards the transverse colon, this was identified and retracted anteriorly , and the ligament of Treitz identified, approximately 40 cm was counted off from this and the bowel was transected with a 45-mm marr JIMMIE stapling device. Enterotomy was made on the proximal portion o f the common biliopancreatic limb and the mesentery was undercut with a LigaSure device. Next, taking what will become the Mirela limb, we counted off approximately 80 cm of small bowel, and enterotomy was made at this site. A 60-mm marr JIMMIE stapling device was utilized to create a jejunoje junostomy and the common defect was reapproximated with 2-0 silk sutures in the figure-of-8 fashion. The mesenteric defect was similarly closed with 2-0 Polysorb suture in a figure-of-8 fashion. Next, table was positioned into a steep reverse Trendelenburg and a Alison retractor was inserted through the subxiphoid incision and the liver was retracted anteriorly to the right. This was some what fatty replaced liver, but without discrete lesion. We were able to identify the gastroesophage al fat pad, which was grasped and retracted to its right lower quadrant. Blunt and sharp dissection was carried out to expose the left crux. Next, the retrogastric tunnel was made approximating the third crossing vessel on the lesser curvatu re. A 45-mm marr JIMMIE stapling device was fired at this and an additional 60-mm marr JIMMIE stapling dimitri ce was fired through the stomach to create the pouch. There was a small additional portion through the fat pad. This fat pad was gently dissected and the LigaSure was utilized to free this off and o ne last firing with a 60-mm purple loaded stapler with Nancie-Strips. The pouch appeared the appropri ate size. We did complete our stapling with the Blaine tube in the stomach pouch. Attention was turned towards the small bowel, this Mirela limb was brought in apposition to the stomac h pouch. The proximal portion of this Mirela limb showed some violaceous changes that were concerning for possible ischemia. There was what appeared to be some thrombosis along the vasculature on the bowel wall. For this reason, we candy-caned this up towards the stomach. Stay sutures using 2-0 si lk sutures were placed ensuring that we were not involving the other portion of the bowel that we pl anned on transecting. Next, a gastrotomy was made over the Blaine tube and an enterotomy was made with cautery and the two were made with a 30-mm marr JIMMIE stapling device utilizing just over 2 cm of the stapling device. The common otomy was reapproximated with interrupted 3-0 silk sutures in a figure- of-8 fashion. Next, a 60-mm marr JIMMIE stapling device was fired across the proximal portion of the Mirela limb taking care not to get too close to the gastrojejunostomy but removing the portion that showed some of this thrombosis in the veins in the wall of the bowel. We did not undercut any additional mesentery. T his was placed in an endoscopic retrieval bag and brought out through the left upper quadrant port s ite. We did not send it for specimen. Review of the staple line showed it was intact, bleeding, hem ostasis was excellent and the remaining bowel was all pink and viable. Next, a methylene blue dye test was performed placing the Blaine tube through the anastomosis. We pl aced a gauze behind and there was a negative blue dye test with clamping of the Mirela limb. Blaine tu be was removed after suctioning out the blue dye. We did imbricate additional portion of the small bowel up against the stomach to dunk portion of the suture line. Review of the abdomen showed no bl eeding. The jejunojejunostomy was intact. We then reviewed the distal limb and extended this count ing this off towards the ileum. When clear ileal bowel was identified, we stopped the procedure kno wing that we performed the Mirela-en-Y in the appropriate manner. The Alison retractor was removed . The abdomen was allowed to collapse. Trocar was removed under direct vision and all skin incision s were reapproximated with skin [place] followed by Steri-Strips and sterile dressing. The patient tolerated the procedure well, woken up in the OR, and transferred to the PACU in stable condition. [id number]/[facility] #: [id number]
[2017-06-11] MEDS: HYDROcodone/ACET. 7.5/325 LIQ* 15 ML UDC PO PRN (15:21)
[2017-06-11] MEDS ORDERED: Scopolamine 1.5 mg* PATCH TRANSDERM SCH (16:00)
--- NOTE | 2017-06-11 16:03 | PN ---
Progress Note - Progress Note Date of Service: 06/11/17 SOAP: Subjective: Pt seen and examined earlier today. No complaints at that time. some chest pain and nausea later on Objective: af vss uo good lungs clear abdo: soft/ ND, tender in epigastrum, no rebound no calf tenderness Acetaminophen (Tylenol Adult Liq*) 650 mg PO Q6H PRN PRN Reason: Temp > 101 F Or Mild Pain Hydrocodone Bitart/Acetaminophen (Nortab 7.5/325 Liq*) 10 ml PO Q6H PRN PRN Reason: PAIN Last Admin: 06/11/17 15:21 Dose: 10 ml Dextrose (D50w Syringe 50 Ml*) 12.5 gm IV PUSH .FOR FS < 60 - SS PRN PRN Reason: FS < 60 Diphenhydramine HCl (Benadryl Iv*) 25 mg SLOW PUSH Q6H PRN PRN Reason: ITCHING Heparin Sodium (Porcine) (Heparin Vial(*)) 5,000 units SUBCUT Q8HR [facility] Last Admin: 06/11/17 15:21 Dose: 5,000 units Hydromorphone HCl (Dilaudid Inj*) 0.5 mg IV Q3H PRN PRN Reason: PAIN - SEVERE Last Admin: 06/11/17 11:11 Dose: 0.5 mg Potassium Chloride/Dextrose (D5w 1/2 Ns Kcl 20 Meq 1000 Ml*) 1,000 mls @ 125 mls/hr IV PER RATE [facility] Last Admin: 06/11/17 11:11 Dose: 125 mls/hr Insulin Human Lispro (Humalog*) 0 units SUBCUT Q6HR [facility] PRN Reason: Protocol Last Admin: 06/11/17 12:48 Dose: 3 units Ketorolac Tromethamine (Toradol Inj*) 15 mg IV Q6H PRN PRN Reason: PAIN Stop: 06/12/17 02:00 Last Admin: 06/10/17 22:20 Dose: 15 mg Metoprolol Tartrate (Lopressor Iv*) 10 mg IV Q6H [facility] Last Admin: 06/11/17 12:48 Dose: 10 mg Ondansetron HCl (Zofran Inj*) 4 mg IV Q6H PRN PRN Reason: NAUSEA/VOMITING Last Admin: 06/11/17 11:31 Dose: 4 mg Pantoprazole Sodium (Protonix Iv*) 40 mg IV Q24H ABDIAS Pharmacy Profile Note (Scopolomine Patch Remove*) 1 note PATCH OFF Q72H ABDIAS Scopolamine (Transderm-Scop 1.5 Mg Patch*) 1 patch TRANSDERM Q72H ABDIAS UGi: no leak Assessment: POD 1 rygb, HD stable Plan: d/c cardenas advance diet
[2017-06-11] MEDS: Pantoprazole IV* 40 MG IV SCH (16:15)
[2017-06-11] MEDS: Ketorolac INJ* 15 MG/ML 1 ML VIAL IV PRN (19:37)
[2017-06-12] MEDS: Ketorolac INJ* 15 MG/ML 1 ML VIAL IV PRN (01:55)
[2017-06-12] MEDS: D5W 1/2 NS KCl 20 Meq 1000 ML* 1,000 ML IV SCH ×2 (03:28→11:32)
[2017-06-12] MEDS: Metoprolol Tartrate IV* 1 MG/ML 5 ML VIAL IV SCH ×2 (05:38→11:27)
[2017-06-12] MEDS: Heparin VIAL(*) 5000 UNITS/ML VIAL (FIVE THOUSAND) SUBCUT SCH ×2 (05:50→13:50)
[2017-06-12] MEDS: Insulin LISPRO* 1 UNITS UNIT SUBCUT SCH ×2 (05:50→12:32)
[2017-06-12] MEDS: HYDROcodone/ACET. 7.5/325 LIQ* 15 ML UDC PO PRN (09:13)
--- NOTE | 2017-06-12 09:14 | PN ---
Progress Note - Progress Note Date of Service: 06/12/17 SOAP: Subjective:POD#2 s/p lap rny gastric bypass;no nausea or chest pain;passing flatus [] Objective:afeb,HR 45-60,irreg irreg(known afib);lungs:clear bilat;abd:+bs, incisions intact with [place],no erythema or drainage;ext:nontender Troponins 06/11/17 negative;uo 250ml overnight [] Assessment:POD#2 no chest pain or nausea,ambulating and using IS [] Plan:start keyla clears,continue IV fluids for now,Metoprolol has been held for several doses for low HR,reassess later []
[2017-06-12 11:26] VITALS: BP 121/86
[2017-06-12] MEDS: Pantoprazole IV* 40 MG IV SCH (15:16)
--- NOTE | 2017-06-13 04:17 | DS ---
Amended report to enter cosigning physician on report. DISCHARGE SUMMARY: DATE OF ADMISSION: 06/10/17 DATE OF DISCHARGE: 06/12/17 PATIENT OF: Dr. Mckenna. ADMISSION DIAGNOSIS: Morbid obesity. DISCHARGE DIAGNOSIS: Morbid obesity. ADMITTING PHYSICIAN: Gavin Mckenna MD* (dictated by FELIX Haile). CONSULTATIONS: None. PROCEDURE: Laparoscopic Mirela-en-Y gastric bypass on 06/10/17. HISTORY OF PRESENT ILLNESS: Ms. Lara is a pleasant 62-year-old female who has been seen and followed by the bariatric office for anticipation for bariatric surgery. The patient had tried multiple attempts to lose weight in the past including several dietary plans and exercise regimen but unfortunately she failed to maintain her weight loss. Given her morbid obesity, she had other comorbidities including hypertension and diabetes mellitus for which she sought other surgical alternative to lose weight. She was evaluated found to be a good candidate to undergo a gastric bypass surgery by Dr. Mckenna for which she was scheduled on a later date. HOSPITAL COURSE: The patient was admitted on the same day and went to the operating room, had laparoscopic Mirela-en-Y gastric bypass on 06/10/17. After surgery, she went to the recovery room in a stable condition and then to the surgical floor for observation. She did relatively well after surgery and was ambulatory out of bed. Prior to her admission at this time, it is to be noted that the patient was admitted a week ago with complaints of nausea and vomiting when she started the protein liquid diet that was given to her preoperatively. Unfortunately, she experienced similar nausea and vomiting episodes after she started a bariatric liquid diet on the first day postoperatively. She complained of some chest pain for which EKG and troponin series was obtained and revealed negative for cardiac complications. The patient felt better when she went n.p.o. again on the second day. Her food trial was resumed on a second day postoperatively and she tolerated clear liquid very well. She was ambulatory, out of bed and had no further complaints of chest pain, abdominal pain, nausea or vomiting. Plan for her to go home later today and will follow up with her primary care physician to address medication changes as well as with Dr. Mckenna next week for a bariatric followup. DISCHARGE MEDICATIONS: Include Lortab Elixir 1 tablespoon q.6 hours as needed for pain. All her other medications including vitamin D, Clarinex, Cymbalta, insulin Lantus, losartan, metoprolol, omeprazole, Xarelto, Zocor and metformin will be on hold until addressed by her primary care physician in the next day or two. FELIX HAILE [id number]/[facility] #: [id number] DONALD
[2017-06-14] MEDS ORDERED: Scopolomine PATCH Remove* 1 NOTE MISC PATCH OFF SCH (16:00)
== END 2017-06-12 16:20 | disposition home or self-care (01) | DRG 620 ==
LOC: AA 06:28 → SSU 13:43
PROVIDERS: ADMIT Surgery; ATTEND Surgery
PROC: 0D164ZA Bypass Stomach to Jejunum, Percutaneous Endoscopic Approach (ICD-10-PCS; principal; 2017-06-10 07:45)
DX: E66.01 Morbid (severe) obesity due to excess calories (principal); I50.32 Chronic diastolic (congestive) heart failure; I11.0 Hypertensive heart disease with heart failure; R07.9 Chest pain, unspecified; E78.5 Hyperlipidemia, unspecified; F32.9 Major depressive disorder, single episode, unspecified; F41.9 Anxiety disorder, unspecified; G47.33 Obstructive sleep apnea (adult) (pediatric); K21.9 Gastro-esophageal reflux disease without esophagitis; I48.91 Unspecified atrial fibrillation; R11.2 Nausea with vomiting, unspecified; Z68.42 Body mass index [BMI] 45.0-49.9, adult; Z79.4 Long term (current) use of insulin; Z79.01 Long term (current) use of anticoagulants; Z90.49 Acquired absence of other specified parts of digestive tract; Z83.3 Family history of diabetes mellitus; Z82.49 Family history of ischemic heart disease and other diseases of the circulatory system; Z88.8 Allergy status to other drugs, medicaments and biological substances; Z98.51 Tubal ligation status; Z87.891 Personal history of nicotine dependence; Z86.718 Personal history of other venous thrombosis and embolism
CPT/HCPCS: 36415; 43644; 74246; 84484; 93005; 94760; A9270-GY; C1776; J0461; J0690; J1100; J1170; J1644; J1885; J2250; J2405; J2704; J2765; J3010

== ENCOUNTER 2018-04-13 21:41 | Emergency (ER) | payer MEDICARE ==
[2018-04-13 22:45] LABS: Urine Appearance Clear; Urine Blood 2+ (Negative); Urine Color Yellow; Urine Ketones Negative (Negative); Urine Protein 1+(30 mg/dL) (Negative); Urine Red Blood Cell 3+(>10/hpf) (Absent); Urine Specific Gravity 1.017 (1.010-1.030); Urine Urobilinogen Negative (Negative); Urine White Blood Cell 2+(11-20/hpf) (Absent)
--- NOTE | 2018-04-14 00:53 | ED ---
Abdominal Pain/Female - HPI Summary HPI Summary: This patient is a 63 year old F presenting to [facility] accompanied by with a chief complaint of L flank pain that began yesterday. The patient rates the pain 8/10 in severity. Symptoms aggravated by nothing. Symptoms alleviated by nothing. Patient reports pressure when urinating, and nausea. Patient denies hematuria, fever, and chills. Pt reports a history of UTI. - History of Current Complaint Chief Complaint: EDFlankPain Stated Complaint: LOWER BACK PAIN Time Seen by Provider: 04/14/18 00:47 Hx Obtained From: Patient ?: No Onset/Duration: Sudden Onset, Lasting Days, Still Present Timing: Constant Severity Initially: Moderate Severity Currently: Moderate Pain Intensity: 6 Pain Scale Used: 0-10 Numeric Location: Flank Radiates: No Aggravating Factor(s): Nothing Alleviating Factor(s): Nothing Associated Signs and Symptoms: Positive: Other: - Positive pressure when urinating Allergies/Adverse Reactions: Allergies Allergy/AdvReac Type Severity Reaction Status Date / Time Adhesive Tape Allergy ALLERGY TO Verified 04/13/18 21:47 SPECIFIC TAPE- NAME UNKNOWN lansoprazole [From Prevacid] Allergy Itching Verified 04/13/18 21:47 PMH/Surg Hx/FS Hx/Imm Hx Previously Healthy: No Endocrine/Hematology History: Reports: Hx Diabetes - type 2 Denies: Hx Thyroid Disease Cardiovascular History: Reports: Hx Atrial Fibrillation, Hx Hypertension, Other Cardiovascular Problems/Disorders - HX AFIB- SEES DR. JOHN FOR Denies: Hx Congestive Heart Failure Respiratory History: Reports: Hx Chronic Obstructive Pulmonary Disease (COPD), Hx Sleep Apnea Denies: Hx Asthma GI History: Denies: Hx Ulcer History: Denies: Hx Renal Disease Musculoskeletal History: Reports: Hx Arthritis Sensory History: Reports: Hx Contacts or Glasses Denies: Hx Hearing Aid Opthamlomology History: Reports: Hx Contacts or Glasses Neurological History: Reports: Hx Headaches - ONCE IN A WHILE, Hx Migraine - hx of - not recently Psychiatric History: Reports: Hx Depression - Cancer History Hx Chemotherapy: No Hx Radiation Therapy: No - Surgical History Surgery Procedure, Year, and Place: gall bladder, appy, tubal, [facility] Hx Anesthesia Reactions: No Infectious Disease History: No Infectious Disease History: Denies: Hx Hepatitis, Hx Human Immunodeficiency Virus (HIV), Hx of Known/ Suspected MRSA, Hx Shingles, Hx Tuberculosis, Traveled Outside the [place] in Last 30 Days - Family History Known Family History: Positive: Cardiac Disease, Hypertension - Social History Occupation: Disabled Lives: With Family Alcohol Use: None Hx Substance Use: No Substance Use Type: Reports: None Hx Tobacco Use: Yes Smoking Status (MU): Former Smoker Type: Cigarettes Amount Used/How Often: 1.5 PPD X 4 YEARS Have You Smoked in the Last Year: No Review of Systems Negative: Fever, Chills Positive: Nausea, Other - Positive L flank pain Genitourinary: Other - Positive pressure when urinating Negative: hematuria All Other Systems Reviewed And Are Negative: Yes Physical Exam - Summary Physical Exam Summary: Appearance: Well-appearing, Well-nourished, lying in bed comfortably Skin: Warm, dry, no obvious rash Eyes: sclera anicteric, no conjunctival pallor ENT: mucous membranes moist, pharynx appears normal Neck: Supple, nontender Respiratory: Clear to auscultation, no signs of respiratory distress Cardiovascular: Normal S1, S2. No murmurs. Normal distal pulses in tibial and radial bilaterally. Abdomen: Soft, normal active bowel sounds present, L-sided CVA tenderness Musculoskeletal: Normal, Strength/ROM Intact Neurological: A&Ox3, awake and alert, mentation is normal, speech is fluent and appropriate Psychiatric: affect is normal, does not appear anxious or depressed Triage Information Reviewed: Yes Vital Signs On Initial Exam: Initial Vitals Temp Pulse Resp BP Pulse Ox 97.2 F 78 18 166/102 96 04/13/18 21:44 04/13/18 21:44 04/13/18 21:44 04/13/18 21:44 04/13/18 21:44 Vital Signs Reviewed: Yes Diagnostics - Vital Signs Vital Signs Temp Pulse Resp BP Pulse Ox 04/13/18 23:43 97.3 F 83 18 173/91 97 04/13/18 21:44 97.2 F 78 18 166/102 96 - Laboratory Lab Results: Lab Results 04/13/18 Range/Units 22:26 Urine Color Yellow Urine Appearance Clear Urine pH 5.0 (5-9) Ur Specific Alpha 1.017 (1.010-1.030) Urine Protein 1+(30 mg/dl) A (Negative) Urine Ketones Negative (Negative) Urine Blood 2+ A (Negative) Urine Nitrate Negative (Negative) Urine Bilirubin Negative (Negative) Urine Urobilinogen Negative (Negative) Ur Leukocyte Esterase Trace A (Negative) Urine WBC (Auto) 2+(11-20/hpf) A (Absent) Urine RBC (Auto) 3+(>10/hpf) A (Absent) Ur Squamous Epith Cells Present A (Absent) Urine Bacteria Absent (Absent) Urine Glucose 3+(>=500 mg/dl) A (Negative) Result Diagrams: 04/14/18 01:06 04/14/18 01:08 Lab Statement: Any lab studies that have been ordered have been reviewed, and results considered in the medical decision making process. Abdominal Pain Fem Course/Dx - Diagnoses Provider Diagnoses: Pyelonephritis Discharge - Sign-Out/Discharge Documenting (check all that apply): Patient Departure - Discharge Plan Condition: Good Disposition: HOME Prescriptions: Sulfamethox/Trimethoprim DS* [Bactrim DS 800/160 TAB*] 1 tab PO BID #20 tab Patient Education Materials: Kidney Infection (ED) Referrals: Juancho Aguilar MD [Primary Care Provider] - - Billing Disposition and Condition Condition: GOOD Disposition: Home - Attestation Statements Document Initiated by Scribe: Yes Documenting Scribe: Francy Nevarez Provider For Whom Scribe is Documenting (Include Credential): Maximus Palacio MD Scribe Attestation: IFrancy, scribed for Maximus Palacio MD on 04/14/18 at 0431. Scribe Documentation Reviewed: Yes Provider Attestation: The documentation as recorded by the Francy quinn accurately reflects the service I personally performed and the decisions made by me, Maximus Palacio MD
[2018-04-14] MEDS ORDERED: cefTRIAXone VIAL(*) 1,000 MG VIAL IM ONE (00:55)
[2018-04-14] MEDS ORDERED: Sulfamethox/Trimethoprim DS 800/160* TAB PO ONE (00:55)
[2018-04-14] MEDS ORDERED: cefTRIAXone(*) 1 GM in NS 0.9% 50 ML* 50 ML IVPB ONE (01:22)
[2018-04-14 01:33] LABS: ABS Basophils 0.1 10^3/ul (0-0.2); ABS Eosinophils 0.2 10^3/ul (0-0.6); ABS Lymphocytes 2.2 10^3/ul (1.0-4.8); ABS Monocytes 0.9 10^3/ul (0-0.8); ABS Neutrophils 7.3 10^3/ul (1.5-7.7); ABS Nucleated RBC 0 10^3/ul; Eosinophil % 1.9 % (0-6); Hematocrit 43 % (35-47); Hemoglobin 13.9 g/dl (12.0-16.0); Mean Corpuscular HGB Conc 32 g/dl (31-36); Mean Corpuscular Hemoglobin 30 pg (27-31); Mean Corpuscular Volume 92 fL (80-97); Mean Platelet Volume 9.5 um3 (7.4-10.4); Nucleated Red Blood Cells % 0.1; Platelet Count 185 10^3/ul (150-450); Red Blood Count 4.69 10^6/ul (4.00-5.40); Red Cell Distribution Width 15 % (10.5-15); White Blood Count 10.7 10^3/ul (3.5-10.8)
[2018-04-14 01:58] LABS: EGFR Non-African American 62.8 (>60)
[2018-04-14 02:41] VITALS: BP 175/75
--- NOTE | 2018-04-14 22:29 | PN ---
Progress Note - Progress Note Date of Service: 04/14/18 Note: Lab called with a positive blood culture result. Patient was called but did not answer the phone, and there was no voicemail. Patient was called a second time 10:30 PM. Patient picked up the phone and was been advised of the positive blood culture and that she needs to return to the ED for further evaluation and possible IV antibiotics. Patient stated she would come to the ED tonight.
== END 2018-04-14 02:40 | disposition home or self-care (01) ==
LOC: ED 21:41
DX: N10 Acute pyelonephritis (principal); Z88.8 Allergy status to other drugs, medicaments and biological substances; Z91.048 Other nonmedicinal substance allergy status; Z87.891 Personal history of nicotine dependence
CPT/HCPCS: 36415; 80053; 81003; 81015; 83605; 85025; 87040; 87077; 87086; 87205; 96365; 99283; A9270-GY; J0696

== ENCOUNTER 2018-05-05 14:30 | Emergency (ER) | payer MEDICARE ==
[2018-05-05 15:40] LABS: ABS Basophils 0.1 10^3/ul (0-0.2); ABS Eosinophils 0.1 10^3/ul (0-0.6); ABS Lymphocytes 1.9 10^3/ul (1.0-4.8); ABS Monocytes 0.6 10^3/ul (0-0.8); ABS Neutrophils 5.3 10^3/ul (1.5-7.7); ABS Nucleated RBC 0 10^3/ul; Eosinophil % 1.7 % (0-6); Hematocrit 40 % (35-47); Hemoglobin 13.3 g/dl (12.0-16.0); Lymphocyte % 23.6 % (25-47); Mean Corpuscular HGB Conc 34 g/dl (31-36); Mean Corpuscular Hemoglobin 30 pg (27-31); Mean Corpuscular Volume 90 fL (80-97); Mean Platelet Volume 8.6 um3 (7.4-10.4); Nucleated Red Blood Cells % 0.1; Platelet Count 306 10^3/ul (150-450); Red Blood Count 4.42 10^6/ul (4.00-5.40); Red Cell Distribution Width 14 % (10.5-15); White Blood Count 8.1 10^3/ul (3.5-10.8)
[2018-05-05 16:14] LABS: EGFR Non-African American 67.1 (>60)
[2018-05-05] MEDS ORDERED: Ondansetron INJ* 2 MG/ML VIAL IV ONE (18:33)
[2018-05-05] MEDS ORDERED: NS 0.9% 1000 ML* 1,000 ML IV ONE (18:33)
--- NOTE | 2018-05-05 18:39 | ED ---
Abdominal Pain/Female - HPI Summary HPI Summary: This patient is a 63 year old F presenting to [facility] accompanied by her with a chief complaint of N/V since 05/01/18. SHx gastric bypass almost a year ago , and she states she just recently started eating. Today, pt went to family medicine, who gave pt Zofran with no alleviation of sx. She endorses occipital CARDENAS radiating to neck, hypertension, and bilateral pedal edema (rx diuretics but has not been compliant). She denies diarrhea, abd pain, fever, CP, and lightheadedness. - History of Current Complaint Chief Complaint: EDNauseaVomitDiarrh Stated Complaint: VOMITTING Time Seen by Provider: 05/05/18 18:25 Hx Obtained From: Patient Onset/Duration: Sudden Onset, Lasting Days, Still Present Timing: Constant Severity Initially: Moderate Pain Intensity: 8 Pain Scale Used: 0-10 Numeric Location: Other - CARDENAS radiating to neck Aggravating Factor(s): Nothing Alleviating Factor(s): Nothing, Other: - Zofran did not alleviate sx. Associated Signs and Symptoms: Positive: Nausea, Vomiting, Other: - bilateral pedal edema. Negative: Fever, Chest Pain, Dizzy - denies lightheadedness, Diarrhea Allergies/Adverse Reactions: Allergies Allergy/AdvReac Type Severity Reaction Status Date / Time Adhesive Tape Allergy ALLERGY TO Verified 05/05/18 14:43 SPECIFIC TAPE- NAME UNKNOWN lansoprazole [From Prevacid] Allergy Itching Verified 05/05/18 14:43 PMH/Surg Hx/FS Hx/Imm Hx Endocrine/Hematology History: Reports: Hx Diabetes - type 2 Denies: Hx Thyroid Disease Cardiovascular History: Reports: Hx Atrial Fibrillation, Hx Hypertension, Other Cardiovascular Problems/Disorders - HX AFIB- SEES DR. JOHN FOR Denies: Hx Congestive Heart Failure Respiratory History: Reports: Hx Chronic Obstructive Pulmonary Disease (COPD), Hx Sleep Apnea Denies: Hx Asthma GI History: Denies: Hx Ulcer History: Reports: Other Problems/Disorders - UTI Denies: Hx Renal Disease Musculoskeletal History: Reports: Hx Arthritis Sensory History: Reports: Hx Contacts or Glasses Denies: Hx Deafness, Hx Hearing Aid Opthamlomology History: Reports: Hx Contacts or Glasses EENT History: Denies: Hx Deafness Neurological History: Reports: Hx Headaches - ONCE IN A WHILE, Hx Migraine - hx of - not recently Psychiatric History: Reports: Hx Depression - Cancer History Hx Chemotherapy: No Hx Radiation Therapy: No - Surgical History Surgery Procedure, Year, and Place: gall bladder, appy, tubal, [facility] Hx Anesthesia Reactions: No Infectious Disease History: No Infectious Disease History: Denies: Hx Hepatitis, Hx Human Immunodeficiency Virus (HIV), Hx of Known/ Suspected MRSA, Hx Shingles, Hx Tuberculosis, Traveled Outside the [place] in Last 30 Days - Family History Known Family History: Positive: Cardiac Disease, Hypertension - Social History Lives: With Family Alcohol Use: None Hx Substance Use: No Substance Use Type: Reports: None Hx Tobacco Use: Yes Smoking Status (MU): Former Smoker Type: Cigarettes Amount Used/How Often: 1.5 PPD X 4 YEARS Have You Smoked in the Last Year: No Review of Systems Negative: Fever Negative: Chest Pain Positive: Vomiting, Nausea. Negative: Abdominal Pain, Diarrhea Positive: no symptoms reported Positive: Myalgia - back of neck, Edema - bilateral pedal Neurological: Other - NEGATIVE: Lightheadedness Positive: Headache - occipital, radiating to neck All Other Systems Reviewed And Are Negative: Yes Physical Exam - Summary Physical Exam Summary: General: well-appearing, no pain distress Skin: warm, color reflects adequate perfusion, dry Head: normal Eyes: EOMI, LIZBET ENT: normal Neck: supple, non-tender Respiratory: CTA, breath sounds present Cardiovascular: RRR Abdomen: soft, mild tenderness in epigastrium Bowel: present Musculoskeletal: normal, strength/ROM intact, bilateral pedal edema Neurological: sensory/motor intact, A&O x3 Psychological: affect/mood appropriate Triage Information Reviewed: Yes Vital Signs On Initial Exam: Initial Vitals Temp Pulse Resp BP Pulse Ox 97.6 F 52 14 166/107 97 05/05/18 14:40 05/05/18 14:40 05/05/18 14:40 05/05/18 14:40 05/05/18 14:40 Vital Signs Reviewed: Yes Diagnostics - Vital Signs Vital Signs Temp Pulse Resp BP Pulse Ox 05/05/18 14:40 97.6 F 52 14 166/107 97 - Laboratory Lab Results: Lab Results 05/05/18 05/05/18 05/05/18 Range/Units 15:29 15:29 15:29 WBC 8.1 (3.5-10.8) 10^3/ul RBC 4.42 (4.00-5.40) 10^6/ul Hgb 13.3 (12.0-16.0) g/dl Hct 40 (35-47) % MCV 90 (80-97) fL MCH 30 (27-31) pg MCHC 34 (31-36) g/dl RDW 14 (10.5-15) % Plt Count 306 (150-450) 10^3/ul MPV 8.6 (7.4-10.4) um3 Neut % (Auto) 65.7 (38-83) % Lymph % (Auto) 23.6 L (25-47) % Pitkin % (Auto) 8.0 H (0-7) % Eos % (Auto) 1.7 (0-6) % Baso % (Auto) 1.0 (0-2) % Absolute Neuts (auto) 5.3 (1.5-7.7) 10^3/ul Absolute Lymphs (auto) 1.9 (1.0-4.8) 10^3/ul Absolute Monos (auto) 0.6 (0-0.8) 10^3/ul Absolute Eos (auto) 0.1 (0-0.6) 10^3/ul Absolute Basos (auto) 0.1 (0-0.2) 10^3/ul Absolute Nucleated RBC 0 10^3/ul Nucleated RBC % 0.1 Sodium 143 (135-145) mmol/L Potassium 4.4 (3.5-5.0) mmol/L Chloride 104 (101-111) mmol/L Carbon Dioxide 32 (22-32) mmol/L Anion Gap 7 (2-11) mmol/L BUN 9 (6-24) mg/dL Creatinine 0.86 (0.51-0.95) mg/dL Est GFR ( Amer) 81.2 (>60) Est GFR (Non-Af Amer) 67.1 (>60) BUN/Creatinine Ratio 10.5 (8-20) Glucose 176 H (70-100) mg/dL Lactic Acid 1.2 (0.5-2.0) mmol/L Calcium 9.6 (8.6-10.3) mg/dL Magnesium 1.7 L (1.9-2.7) mg/dL Total Bilirubin 0.80 (0.2-1.0) mg/dL AST 23 (13-39) U/L ALT 24 (7-52) U/L Alkaline Phosphatase 138 H (34-104) U/L Total Protein 7.1 (6.4-8.9) g/dL Albumin 4.0 (3.2-5.2) g/dL Globulin 3.1 (2-4) g/dL Albumin/Globulin Ratio 1.3 (1-3) Result Diagrams: 05/05/18 15:29 05/05/18 15:29 Lab Statement: Any lab studies that have been ordered have been reviewed, and results considered in the medical decision making process. - CT A/P CT Interpretation: No Acute Changes CT Interpretation Completed By: Radiologist - No acute intra-abdominal findings. Dr. French has reviewed this report. Re-Evaluation - Re-Evaluation First Eval Re-Evaluation Time: 20:45 Change: Improved Comment: discussed (-) CT, pt wants to be discharged, but agreed to UA first. Abdominal Pain Fem Course/Dx - Course Course Of Treatment: DISCUSSED RESULTS WITH THE PATIENT AND HER . IMPROVED IN ED, WISHES TO GO HOME. F/U PMD OR SURGERY IF NOT IMPROVED; RETURN TO ED IF WORSE. - Diagnoses Provider Diagnoses: Vomiting, Dehydration Discharge - Sign-Out/Discharge Documenting (check all that apply): Patient Departure - discharge - Discharge Plan Condition: Stable Disposition: HOME Prescriptions: Metoclopramide TAB* [Reglan TAB*] 10 mg PO Q6H PRN #10 tab PRN Reason: Nausea Patient Education Materials: Acute Nausea and Vomiting (ED) Referrals: Juancho Aguilar MD [Primary Care Provider] - Additional Instructions: FOLLOW UP WITH YOUR PRIMARY CARE DOCTOR AND YOUR SURGEON, DR OJEDA, IF NOT IMPROVED. RETURN TO THE EMERGENCY DEPARTMENT FOR ANY WORSENING OF YOUR CONDITION OR QUESTIONS OR CONCERNS. - Billing Disposition and Condition Condition: STABLE Disposition: Home - Attestation Statements Document Initiated by Scribe: Yes Documenting Scribe: Valentin Delacruz Provider For Whom Scribe is Documenting (Include Credential): Dr. West French MD Scribe Attestation: Valentin Rivera scribed for Dr. West French MD on 05/05/18 at 2208. Scribe Documentation Reviewed: Yes Provider Attestation: The documentation as recorded by the Valentin quinn accurately reflects the service I personally performed and the decisions made by me, Dr. West French MD
[2018-05-05] MEDS ORDERED: Iodixanol* (CONTRAST) 320 MG/ML 100 ML SDV IV ONE (19:02)
--- NOTE | 2018-05-05 20:35 | RAD ---
EXAM: CT Abdomen and Pelvis With Intravenous Contrast CLINICAL HISTORY: 63 years old, female; Pain; Abdominal pain; Epigastric; Prior surgery; Surgery date: 6+ months; Surgery type: Gastric bypass, cholecystectomy, appendectomy, tubal ligation; Additional info: Vomiting, epigastric pain, HX gastric bypass TECHNIQUE: Axial computed tomography images of the abdomen and pelvis with intravenous contrast. All CT scans at this facility use at least one of these dose optimization techniques: automated exposure control; mA and/or kV adjustment per patient size (includes targeted exams where dose is matched to clinical indication); or iterative reconstruction. Coronal and sagittal reformatted images were created and reviewed. CONTRAST: 131 mL of VISI 320 administered intravenously. COMPARISON: CTA C//APW CTA CHEST//ABD PEL W 02/01/2016 5:10 PM FINDINGS: Lung bases: Unremarkable. No mass. No consolidation. Mediastinum: Small hiatal hernia. ABDOMEN: Liver: Unremarkable. No mass. Gallbladder and bile ducts: Cholecystectomy clips. No ductal dilation. Pancreas: Unremarkable. No mass. No ductal dilation. Spleen: Unremarkable. No splenomegaly. Adrenals: Unremarkable. No mass. Kidneys and ureters: Unremarkable. No solid mass. No hydronephrosis. Stomach and bowel: Postoperative changes of gastric bypass noted. No obstruction. No mucosal thickening. PELVIS: Appendix: Appendix absent by history. Bladder: Unremarkable. No mass. Reproductive: Unremarkable as visualized. ABDOMEN and PELVIS: Intraperitoneal space: Unremarkable. No free air. No significant fluid collection. Bones/joints: Left iliac sclerosis, unchanged from the comparison study. Mild degenerative changes of the thoracolumbar spine. No acute fracture. No dislocation. Soft tissues: Small fat containing umbilical hernia. Vasculature: Unremarkable. No abdominal aortic aneurysm. Lymph nodes: Unremarkable. No enlarged lymph nodes. IMPRESSION: 1. No acute intra-abdominal findings.
[2018-05-05] MEDS ORDERED: Metoclopramide TAB* 10 MG PO ONE (20:55)
[2018-05-05 21:13] LABS: Urine Appearance Clear; Urine Blood Negative (Negative); Urine Color Straw; Urine Ketones Negative (Negative); Urine Protein Negative (Negative); Urine Specific Gravity 1.045 (1.010-1.030); Urine Urobilinogen Negative (Negative)
[2018-05-05 21:17] VITALS: BP 128/69
== END 2018-05-05 21:16 | disposition home or self-care (01) ==
LOC: ED 14:30
DX: R11.2 Nausea with vomiting, unspecified (principal); E86.0 Dehydration; E11.9 Type 2 diabetes mellitus without complications; Z87.891 Personal history of nicotine dependence
CPT/HCPCS: 36415; 74177; 80053; 81003; 83605; 83735; 85025; 96374; 99283; A9270-GY; J2405; Q9967